=== PATIENT | male | born 1950 | race Caucasian/White ===

== ENCOUNTER 2016-08-23 20:31 | Emergency (ER) | payer OTHER ==
[~2016-08-23] VITALS: Ht 180.3 cm; Wt 89.9 kg
[2016-08-23] MEDS ORDERED: PREDNISONE20 MG PO (21:39)
[2016-08-23] MEDS ORDERED: MOTRIN800 MG PO (21:39)
[2016-08-23] MEDS ORDERED: FLEXERIL10 MG PO (21:39)
[2016-08-23 22:10] VITALS: BP 131/67
== END 2016-08-23 22:20 | disposition home or self-care (01) ==
LOC: EME 20:31
DX: S16.1XXA Strain of muscle, fascia and tendon at neck level, initial encounter (principal); V44.5XXA Car driver injured in collision with heavy transport vehicle or bus in traffic accident, initial encounter; E78.5 Hyperlipidemia, unspecified
CPT/HCPCS: 72040; 99281; 99284; J1885; J7512

== ENCOUNTER 2016-10-30 19:25 | Emergency (ER) | payer OTHER ==
[~2016-10-30] VITALS: Ht 180.3 cm; Wt 93.5 kg
[~2016-10-30 19:25] MED LIST: FLEXERIL10 MG PO; MOTRIN800 MG PO; PREDNISONE20 MG PO
[2016-10-30] MEDS ORDERED: INDOCIN50 MG PO (20:27)
[2016-10-30 21:14] LABS: HEMATOCRIT 37.5 % (38.0-50.0); MCH 29.9 PG (29.0-34.0); MCHC 33.9 G/DL (30.0-36.0); MCV 88.2 FL (86-99); MEAN PLAT.VOLUME 9.8 uM^3 (9.0-12.4); PLATELET COUNT 245 K/uL (156-360); RBC DIS.WIDTH-CV 13.1 % (11.8-14.6); RBC DIS.WIDTH-SD 42.2 % (39-53); RED BLOOD COUNT 4.25 M/uL (4.00-5.50); WHITE BLOOD COUNT 5.9 K/uL (4.1-10.2)
[2016-10-30 21:24] LABS: PROTHROMBIN TIME 10.3 (9.2-11.2); PTT 26.4 (25-32)
[2016-10-30 21:26] LABS: CHLORIDE 105 mEq/L (99-109); POTASSIUM 4.3 mEq/L (3.7-5.4); SODIUM 137 mEq/L (136-147)
[2016-10-30 21:28] LABS: GLUCOSE 127 mg/dL (70-99)
[2016-10-30 21:29] LABS: ANION GAP 8 MEQ/L (2-14)
[2016-10-30 21:32] LABS: GFR ESTIMATE (CALCULATED) > 59 mL/min/
[2016-10-30 21:33] LABS: UREA NITROGEN (BUN) 29 mg/dL (9-23)
[2016-10-30] MEDS ORDERED: NORCO 7.5/321 TABLET PO (23:16)
[2016-10-30 23:49] VITALS: BP 183/80
== END 2016-10-30 23:49 | disposition home or self-care (01) ==
LOC: EME 19:25
PROVIDERS: Physician Assistant
DX: S70.12XA Contusion of left thigh, initial encounter (principal); W20.8XXA Other cause of strike by thrown, projected or falling object, initial encounter; Y99.0 Civilian activity done for income or pay; M17.12 Unilateral primary osteoarthritis, left knee; M71.22 Synovial cyst of popliteal space [Baker], left knee
CPT/HCPCS: 73701; 80048; 85027; 85610; 85730; 99281; 99284